=== PATIENT | female | born 2000 | race Caucasian/White ===

== ENCOUNTER 2018-08-05 10:25 | Inpatient (IN) ==
[2018-08-05 11:30] LABS: Amphetamine Screen,Urine Negative ng/mL (Cutoff=1000); Barbiturate Screen,Urine Negative ng/mL (Cutoff=200); Benzodiazepines Screen,Urine Negative ng/mL (Cutoff=200); Cannabinoid Screen,Urine Positive ng/mL (Cutoff = 50); Cocaine Screen,Urine Negative ng/mL (Cutoff= 300); Opiate Screen,Urine Negative ng/mL (Cutoff=300); Phencyclidine Screen,Urine Negative ng/mL (Cutoff=25)
[2018-08-05] MEDS ORDERED: Metoclopramide 10 MG/2 ML VIAL IVP PRN (11:59)
[2018-08-05] MEDS ORDERED: Famotidine 20 MG/2 ML VIAL IVP PRN (11:59)
[2018-08-05] MEDS ORDERED: Ondansetron 4 MG/2 ML VIAL IVP PRN (11:59)
[2018-08-05] MEDS ORDERED: Naloxone 0.4 MG/ML INJ IVP PRN (11:59)
[2018-08-05] MEDS ORDERED: *HR* Nalbuphine 10 MG/ML AMPUL IVP PRN (11:59)
[2018-08-05] MEDS ORDERED: Ringers Solution, Lactated 1,000 ML IVC SCH (12:00)
[2018-08-05 12:18] LABS: Basophils % 0.2 %; Eosinophils # 0.1 K/mcL (0.0-0.6); Eosinophils % 0.6 %; Hemoglobin 12.9 g/dL (11.5-15.4); Immature Granulocytes % 0.5 % (0-4); Lymphocytes # 1.6 K/mcL (0.6-4.6); Mean Corpuscular HGB Conc 34.9 g/dL (31.6-35.5); Mean Corpuscular Hemoglobin 31.5 pg (28.0-33.3); Mean Corpuscular Volume 90.2 fL (83.0-100.0); Mean Platelet Volume 11.3 fL (9.4-12.4); Monocytes # 0.5 K/mcL (0.0-1.3); Neutrophils # 12.7 K/mcL (1.6-8.9); Platelet Count 191 K/mcL (140-400); Segmented Neutrophils % 84.7 %
[2018-08-05] MEDS ORDERED: Penicillin G Potassium 5,000,000 UNIT in 0.9 % Sodium Chloride Mini Bag 100 ML IVPB ONE (12:20)
--- NOTE | 2018-08-05 12:56 | OB/GYN History & Physical ---
Date of Encounter: 08/05/18 Time of Encounter: 12:40 Assessment and Plan (1) 40 weeks gestation of Current visit: Yes Status: Acute Admit for labor. Nubain for pain now after lengthy discussion with pt about risk of withdrawl with regular opiate use. Pt adamantly denies regular use. GBS unknown. POC discussed with Dr. John. Pt is negative by risk factors. Will hold antibiotics for now. Anticipate . (2) Non-compliance Current visit: Yes Status: Acute (3) Marijuana abuse Current visit: Yes Status: Acute (4) Opiate abuse, episodic Current visit: Yes Status: Acute (5) Tobacco abuse Current visit: Yes Status: Acute History of Present Illness Chief complaint: contractions HPI: Ms. Foote is a 18 year old female presenting at 40w4d, by 19 week ultrasound, with c/o contractions that started at 0200 this am. She reports she was initially unable to sleep through contractions but then they got closer and stronger around 0500. She denies LOF or vaginal bleeding. Good FM. She received scant care at [facility] with Dr. Del Rio. She has not been seen since 23 weeks because her [id number]-rt-iae has been critically ill and hospitalized in [place] so she has been staying up there. Pt does admit to tobacco use of 1/2 PPD. Marijuana occassional use. She also admits to using percocet that she gets from her mother with last use 3-5days ago and prior to that was 2-3 months ago. O positive Rubella immune HIV, Hep B and Hep C negative No treponema result found in records GC/CL negative Glucola WNL UDS positive for Oxycodone and marijuana at initial visit Past Med Surg Social Fam HX - Past Medical History Medical history: no medical history Psychiatric history: no psych history - Past Surgical History Surgical History: no surgical history - Social History Smoking Status: Current some day smoker Packs per day: 0.5 Alcohol use: none Drug use: marijuana, prescription drug abuse - Family History Father Living Status: Hx Family Cardiac Disorders: Yes (CAD, from a heart attack) Obstetrical History - Pregnancies : 1 Medications and Allergies Phenergan 1 tab PO PRN PRN 08/05/18 [History] Vitamin Tablet 1 tab PO DAILY 08/05/18 [History] Allergy/AdvReac Type Severity Reaction Status Date / Time No Known Allergies Allergy Verified 08/05/18 11:14 Review of System OB All systems PM: reviewed and no additional remarkable complaints except as stated Exam - Constitutional Constitutional: well developed, well nourished, no acute distress - HEENT HEENT: Mucus Membranes Moist - Lungs Respiratory exam: CTAB - Cardiovascular Cardiovascular exam: RRR, +S1, +S2 - Abdomen Abdomen: Present: gravid, non tender - Extremities Extremities exam: normal inspection - Vulva Vulva: bilateral: normal - Vagina Vagina: Present: normal moisture - Cervix Dilation: 2 (2.5) Effacement: 90 Station: -2 - Anus/Rectum Anus/Rectum: Present: normal perianal skin Results Result Diagrams: 08/05/18 11:50 Abnormal lab results WBC 15.0 K/mcL (4.3-11.1) H 08/05/18 11:50 12.7 K/mcL (1.6-8.9) H 08/05/18 11:50 U Marijuana (THC) Screen Positive ng/mL (Cutoff = 50) H 08/05/18 10:40 All other labs normal. - VTE Reasons for not Prescribing Prophylaxis: Treatment not Indicated - Low risk for VTE
[2018-08-05] MEDS ORDERED: Bupivacaine-MPF 0.25% 10 ML VIAL EP ONE (13:33)
[2018-08-05] MEDS ORDERED: *HR* FentaNYL (PF) 100 MCG/2 ML VIAL EP ONE (13:33)
[2018-08-05] MEDS ORDERED: Epidural Premix (fent/bupiv) 110 ML EP SCH (13:45)
--- NOTE | 2018-08-05 14:06 | OB Labor Progress Note ---
Date of Encounter: 08/05/18 Time of Encounter: 14:04 Labor Progress Note - Subjective Subjective: Pt reports pain 7/10 with contractions. She is requesting an epidural. - Cervix Cervix: 4/90/0 - Heart Tones Heart Tones: Category I - Ellerbe Ellerbe: 6-8 minutes - Interventions Interventions: AROM for scant amount blood tinged fluid. - Plan Plan: Continue to monitor. Epidural as requested. Anticipate .
--- NOTE | 2018-08-05 14:49 | Anesthesia Evaluation PreOp ---
Date of Encounter: 08/05/18 Time of Encounter: 14:14 - Past History Planned Operation: MARCI Cardiac History: Denies any Significant Hx Pulmonary History: Smoker (1/2ppd), Pack/yr (2) VIDEO GAME ANIMATOR History: Denies Any Significant HX Other Medical History: Denies Any Significant HX Anesthesia History: No Prior Anesthetic Complications (never had NA or GA; denies family h/o GA complications) : Yes Alcohol Use: none Drug use: marijuana, prescription drug abuse Medications and Allergies Phenergan 1 tab PO PRN PRN 08/05/18 [History] Vitamin Tablet 1 tab PO DAILY 08/05/18 [History] Allergy/AdvReac Type Severity Reaction Status Date / Time No Known Allergies Allergy Verified 08/05/18 11:14 - Meds/Allergy Pre-op Review Medications Reviewed: Yes Allergies Reviewed: Yes Beta Blockers on Current Med List: No Anesthesia Results - Labs 08/05/18 11:50 Anesthesia Exam O2 Sat Height 1.68 m Height 1.68 m Weight 78.9 kg Weight 78.9 kg NPO (# of Hours): solids > 8hrs Pain Scale: 8 Pain Scale Used: Numeric (1 - 10) - HEENT Pupil (Motor): Pupils equal Mallampati: II Teeth: Normal Oral Opening: Greater than 3 - VIDEO GAME ANIMATOR LOC: Oriented VIDEO GAME ANIMATOR Motor: Normal RUE, Normal LUE, Normal RLE, Normal LLE, Normal Face VIDEO GAME ANIMATOR Sensory: Normal: RUE, LUE, RLE, LLE, Face - Cardiac Rhythm: Regular Murmur: None - Pulmonary Breath Sounds: bilateral Clear Respiratory Effort: Symmetrical Anesthesia Assess/Plan ASA Score: 2 Level of consciousness: Cooperative, Oriented, Anxious, Restless Anesthetic Plan: Epidural Autologous Blood: No Monitoring Plan: Standard Monitors Recovery Plan: Other
--- NOTE | 2018-08-05 14:52 | Anesthesia Procedures ---
Date of Encounter: 08/05/18 Time of Encounter: 14:49 Procedures: Anesthesia - Epidural/Spinal Patient ID/Chart reviewed: Yes Patient examined: Yes OB Eval: Gestational age: 40 weeks 4 days OB Eval: : 1 OB Eval: Hx Para: 0 OB Eval: Dilated at (cm): 4 OB Eval: Contractions: Non-stressed pattern Consent Obtained: Yes Supplemental Oxygen: None/Room Air Site Prep: Aseptic Technique, Sterile prep and drape, 0.5% Chlorhexidine/Alcohol Patient position: upright Local Anesthetic: Lidocaine 1% Amount of Local Anesthetic used: 3 Touhy Needle Gauge: 18 Touhy Needle Depth (cm): 5 Catheter Depth at Skin (cm): 10 Test Dose (1.5% Lido + Epi): Volume given (mls): 5 Test Dose Result: Negative Loading Dose: 0.25% Marcaine (mls): 5 Loading Dose: Fentanyl (mcg): 100 Loading Dose Administered: Thru Catheter Infusion Rate (mls/hr): 14 (w/ demand bolus of 5mL q30min PRN) Catheter Secured in Place: Tegaderm, Tape Interspace Used: L3-L4 Loss of Resistance (CHIQUITA): Yes Blood: No CSF: Yes (intentional meningeal puncture performed w/ 25G sprotte through Tuohy) Paresthesia: No Spinal Needle Gauge: 25 Procedure: successful on 1st attempt; Patient tolerated procedure well; VSS Vitals + FHT's: see Nyla HERNANDEZ's electronic records for VS entry
[2018-08-05] MEDS ORDERED: Penicillin G Potassium 2,500,000 UNIT in 0.9 % Sodium Chloride 100 ML IVPB SCH (16:30)
--- NOTE | 2018-08-05 17:20 | OB Labor Progress Note ---
Date of Encounter: 08/05/18 Time of Encounter: 17:17 Labor Progress Note - Subjective Subjective: Pt comfortable with epidural. - Cervix Cervix: 6/100/0 - Heart Tones Heart Tones: Baseline 120 BPM, difficulty tracing. Possible decel while pt on back for IUPC placement. Pt repositioned to left lateral after IUPC placed. - [place]: 3-4 minutes - Interventions Interventions: IUPC placed - Plan Plan: Continue to monitor. Begin pitocin as needed. Anticipate .
[2018-08-05] MEDS ORDERED: Oxytocin 20 units/ LR 1000 mL 20 UNIT/1,000 ML BAG IVC SCH (17:30)
--- NOTE | 2018-08-05 20:19 | Anesthesia Progress Note ---
Date of Encounter: 08/05/18 Time of Encounter: 20:17 Anesthesia Note - Note Note: Called to patient bedside to evaluate breakthrough labor pain. Patient describes bilateral lower pelvic pain. Pt reports LE paresthesias R > L. Patient already positioned left side down. Catheter remains at 10.5cm nancy at skin. a total of 10mL of 0.125% bupivicaine administered over a period of 20 min. Patient reports improvement in pain score. VSS 08/05/18 20:17
--- NOTE | 2018-08-05 22:20 | OB/GYN Procedure Note ---
Delivery - Delivery Date: 08/05/18 Provider: Aura John Delivery monitor: internal FHT, internal uterine Anesthesia: epidural - (s) A Delivery Date: 08/05/18 Delivery Time: 22:11 Presentation: vertex Position: MASOUD Route of delivery: vacuum extraction Gender: Female Viability: Viable at 1 minute: 8 at 5 mins: 9 Shoulder Dystocia: not encountered Specimens collected: cord blood Placenta: spontaneous - Repair Episiotomy: none - Complications Delivery complications: other (decreased heart tones with pushing) Delivery comments: Called to labor and delivery room secondary to decreased heart tones by our pipelines supervisor. Heart tones were noted to be in the 80s. Baby was in the right occiput anterior presentation. Vacuum was placed on the occiput without difficulty. Maternal effort was good. One pull was performed with delivery of the occiput. No complications noted. Upon delivery baby was vigorous and crying. She was placed upon the maternal abdomen. Apgars were 8 and 9. Mother and baby both tolerated procedure well. At this time our pipelines supervisor resumed care of the patient. - Disposition Mom disposition: stable in LDR [place] disposition: stable in LDR
--- NOTE | 2018-08-05 22:59 | OB/GYN Procedure Note ---
Delivery - Delivery Date: 08/05/18 Provider: Aura John (Mina) Intrapartum events: meconium (meconium noted just prior to delivery, scant blood tinged fluid at AROM, no other fluid noted throughout the labor process), oligohydramnios Delivery augmentation: rupture of membranes Delivery monitor: internal FHT, internal uterine Anesthesia: epidural Quantitated Blood Loss: 150 - (s) Infant A Infant Delivery Date: 08/05/18 Delivery Time: 22:11 Presentation: vertex Position: MASOUD Route of delivery: vacuum extraction Gender: Female Viability: Viable Pounds: 6 Ounces: 8 at 1 minute: 8 at 5 mins: 9 Shoulder Dystocia: not encountered Specimens collected: cord blood Placenta: spontaneous Cord: 3 umbilical vessels, other (meconium stained membranes) - Repair Episiotomy: none Laceration Description: Perineal - 2nd Degree - Complications Delivery complications: meconium, other (decreased heart tones with pushing) - Disposition Mom disposition: stable in LDR [place] disposition: stable in LDR - Comments Comments: Pt presented at 40 weeks gestation in active labor. Labor augmented with AROM. Epidural anesthesia. Pt progressed well to complete and +2 station. I was then called to room for delivery. Upon my arrival FHT noted to to be in the 90's. Pt was moved from supine position to left lateral. Pt continued to push with minimal descent. Continued bradycardia. Good scalp stim. Pt repositioned to right lateral and pushed without significant movement. Dr. John called at this time for vacuum assist. Dr. John is on her way back from ER. With permission from Dr. John kiwi placed with gentle traction to assist with pushing for one contraction for [address] John then arrived and assumed care for VAVD. I resumed care following . After pulsations ceased the cord was clamped and cut and the placenta delivered spontaneous and intact. A second degree perineal laceration was repaired with 2-0 monocryl. Continued trickle of blood noted following repair. Dr. John called back to room to evaluate for cervical laceration. No cervical laceration noted per Dr. John. Per physician recommendation will treat for lower uterine segment atony. EBL 150ml. Mother and baby stable in DR following .
[2018-08-05] MEDS ORDERED: Rho Immune Globulin 1,500 UNIT SYRINGE IM PRN (23:35)
[2018-08-05] MEDS ORDERED: Measles/Mumps/Rubella Vacc 0.5 ML VIAL SQ PRN (23:35)
[2018-08-05] MEDS ORDERED: Acetaminophen 325 MG TABLET PO PRN (23:35)
[2018-08-05] MEDS: Ibuprofen 600 MG TABLET PO PRN (23:44)
[2018-08-06 00:45] LABS: Basophils % 0.2 %; Eosinophils % 0.1 %; Hematocrit 34.4 % (35.3-44.9); Hemoglobin 12.1 g/dL (11.5-15.4); Immature Granulocytes % 0.7 % (0-4); Lymphocytes # 1.3 K/mcL (0.6-4.6); Lymphocytes % 6.1 %; Mean Corpuscular HGB Conc 35.2 g/dL (31.6-35.5); Mean Corpuscular Hemoglobin 31.8 pg (28.0-33.3); Mean Corpuscular Volume 90.5 fL (83.0-100.0); Mean Platelet Volume 11.3 fL (9.4-12.4); Monocytes # 1.2 K/mcL (0.0-1.3); Monocytes % 5.4 %; Neutrophils # 19.1 K/mcL (1.6-8.9); Platelet Count 167 K/mcL (140-400); Red Cell Distribution Width 12.7 % (11.5-14.5); Segmented Neutrophils % 87.5 %
[2018-08-06 01:07] LABS: Alanine Aminotransferase 7 Units/L (7-52); Aspartate Amino Transferase 14 Units/L (13-39); BUN/Creatinine Ratio 15 (6-26); Blood Urea Nitrogen 7 mg/dL (6-20); Lactate Dehydrogenase 173 Units/L (140-271); eGFR For Non-African Americans > 60 (> 60)
[2018-08-06] MEDS: Ibuprofen 600 MG TABLET PO PRN ×3 (07:24→20:53)
[2018-08-06] MEDS: Prenatal Vit/FA 1 EACH TABLET PO SCH (07:24)
[2018-08-06 07:40] LABS: Basophils # 0.1 K/mcL (0.0-0.2); Basophils % 0.2 %; Eosinophils % 0.1 %; Hematocrit 33.6 % (35.3-44.9); Hemoglobin 11.4 g/dL (11.5-15.4); Immature Granulocytes % 0.5 % (0-4); Lymphocytes # 2.1 K/mcL (0.6-4.6); Lymphocytes % 9.6 %; Mean Corpuscular HGB Conc 33.9 g/dL (31.6-35.5); Mean Corpuscular Hemoglobin 31.5 pg (28.0-33.3); Mean Corpuscular Volume 92.8 fL (83.0-100.0); Monocytes # 1.2 K/mcL (0.0-1.3); Monocytes % 5.6 %; Neutrophils # 18.4 K/mcL (1.6-8.9); Platelet Count 173 K/mcL (140-400); Red Blood Count 3.62 M/mcL (3.82-4.97); Red Cell Distribution Width 12.8 % (11.5-14.5)
[2018-08-06] MEDS ORDERED: Benzocaine/Menthol 56 GM AEROSOL SPRAY TP PRN (07:49)
[2018-08-06] MEDS: Oxytocin 20 units/ LR 1000 mL 20 UNIT/1,000 ML BAG IVC SCH (08:28)
[2018-08-06] MEDS ORDERED: NON-FORMULARY MEDICATION 1 EACH EACH (Prenatal Vitamin Tablet 1 TAB) PO SCH (09:00)
--- NOTE | 2018-08-06 09:51 | OB/GYN Progress Note ---
Date of Encounter: 08/06/18 Time of Encounter: 09:46 - Assessment and Plan (1) Status post vaginal delivery Current Visit: Yes Status: Acute Meeting day 1 milestones. Bleeding normal, no large clots noted. Pain well controlled with prescribed medications. Tolerating diet. Voiding without difficulty. Passing gas, no BM yet. Ambulating without difficulty. Denies CHERRY since delivery, visual changes, CP, SOB. (2) Tobacco abuse Current Visit: Yes Status: Acute (3) Opiate abuse, episodic Current Visit: Yes Status: Acute (4) Marijuana abuse Current Visit: Yes Status: Acute Subjective - Subjective Principal diagnosis: s/p vaginal delivery Patient reports: appetite normal, voiding normally, pain well controlled, ambulating normally [place]: in NICU (nursery), bottle feeding Objective - Latest Vital Signs Latest vital signs: Vital Signs Temp Pulse Resp BP Pulse Ox 08/06/18 09:06 98.5 F 60 14 139/84 95 08/06/18 02:15 99.6 F 54 14 155/89 99 08/06/18 01:15 99.8 F H 55 14 153/85 98 Intake and Output 08/05/18 08/06/18 08/06/18 23:59 07:59 15:59 Output Total 70 / 770 700 / 770 Balance -70 / -770 -700 / -770 Output: Urine 70 / 770 700 / 770 Other: # Voids 1 Weight 79.3 kg Patient Weight 08/06/18 23:59 Weight 79.3 kg - Exam Lungs: left: crackles/rales, right: normal Chest: Normal S1, Normal S2 Extremities: Present: normal. Absent: tenderness Abdomen: Present: soft. Absent: tenderness Uterus: Present: firm - Labs Labs: Laboratory Results - last 24 hr 08/05/18 08/05/18 08/05/18 10:40 11:50 11:50 WBC 15.0 H RBC 4.10 Hgb 12.9 Hct 37.0 MCV 90.2 MCH 31.5 MCHC 34.9 RDW 13.0 Plt Count 191 MPV 11.3 Immature Gran % 0.5 Seg Neutrophils % 84.7 Lymphocytes % 11.0 Monocytes % 3.0 Eosinophils % 0.6 Basophils % 0.2 Neutrophils # 12.7 H Lymphocytes # 1.6 Monocytes # 0.5 Eosinophils # 0.1 Basophils # 0.0 BUN Creatinine Est GFR ( Amer) Est GFR (Non-Af Amer) BUN/Creatinine Ratio Uric Acid AST ALT Lactate Dehydrogenase Urine Opiates Screen Negative Ur Barbiturates Screen Negative Ur Phencyclidine Scrn Negative Ur Amphetamines Screen Negative U Benzodiazepines Scrn Negative Urine Cocaine Screen Negative U Marijuana (THC) Screen Positive H Ur Drug Screen Interp See Below T.isaacdum Ab Interpret Negative Specimen Rejected 08/06/18 08/06/18 08/06/18 00:30 00:30 05:33 WBC 21.9 H RBC 3.80 L Hgb 12.1 Hct 34.4 L MCV 90.5 MCH 31.8 MCHC 35.2 RDW 12.7 Plt Count 167 MPV 11.3 Immature Gran % 0.7 Seg Neutrophils % 87.5 Lymphocytes % 6.1 Monocytes % 5.4 Eosinophils % 0.1 Basophils % 0.2 Neutrophils # 19.1 H Lymphocytes # 1.3 Monocytes # 1.2 Eosinophils # 0.0 Basophils # 0.0 BUN 7 Creatinine 0.46 L Est GFR ( Amer) > 60 Est GFR (Non-Af Amer) > 60 BUN/Creatinine Ratio 15 Uric Acid 5.0 AST 14 ALT 7 Lactate Dehydrogenase 173 Urine Opiates Screen Ur Barbiturates Screen Ur Phencyclidine Scrn Ur Amphetamines Screen U Benzodiazepines Scrn Urine Cocaine Screen U Marijuana (THC) Screen Ur Drug Screen Interp T.isaacdum Ab Interpret Specimen Rejected Clotted 08/06/18 06:30 WBC 22.0 H RBC 3.62 L Hgb 11.4 L Hct 33.6 L MCV 92.8 MCH 31.5 MCHC 33.9 RDW 12.8 Plt Count 173 MPV 12.0 Immature Gran % 0.5 Seg Neutrophils % 84.0 Lymphocytes % 9.6 Monocytes % 5.6 Eosinophils % 0.1 Basophils % 0.2 Neutrophils # 18.4 H Lymphocytes # 2.1 Monocytes # 1.2 Eosinophils # 0.0 Basophils # 0.1 BUN Creatinine Est GFR ( Amer) Est GFR (Non-Af Amer) BUN/Creatinine Ratio Uric Acid AST ALT Lactate Dehydrogenase Urine Opiates Screen Ur Barbiturates Screen Ur Phencyclidine Scrn Ur Amphetamines Screen U Benzodiazepines Scrn Urine Cocaine Screen U Marijuana (THC) Screen Ur Drug Screen Interp T.pallidum Ab Interpret Specimen Rejected
[2018-08-07] MEDS: Ibuprofen 600 MG TABLET PO PRN (06:22)
[2018-08-07] MEDS: Prenatal Vit/FA 1 EACH TABLET PO SCH (07:52)
[2018-08-07 07:57] VITALS: BP 148/63
--- NOTE | 2018-08-07 08:38 | Discharge Summary ---
Date of Encounter: 08/07/18 Time of Encounter: 08:30 - Discharge Diagnosis (1) Status post vaginal delivery Priority: Primary Status: Acute Comments: S/P vaginal delivery day 2. Pain is well controlled Lochia light Voiding without difficulty Tolerating regular diet and passing flatus bottle feeding Discharge to guest today (2) Marijuana abuse Priority: Secondary Status: Acute (3) Opiate abuse, episodic Priority: Secondary Status: Acute (4) Tobacco abuse Priority: Secondary Status: Acute - Discharge Medications Prescriptions: New Docusate [Colace] 100 mg PO BID #20 capsule Benzocaine/Menthol [place] [Dermoplast [place]] 1 appl TP QID PRN aerosol PRN Reason: See Comments Ferrous Sulfate 325 mg PO DAILY #90 tablet Ibuprofen [Motrin] 600 mg PO Q6HR PRN #30 tablet PRN Reason: Cramping Acetaminophen [Tylenol] 650 mg PO Q6H PRN tablet PRN Reason: Mild Pain Continued Vitamin Tablet 1 tab PO DAILY Discontinued Phenergan 1 tab PO PRN PRN PRN Reason: Nausea Home Medications: Vitamin Tablet 1 tab PO DAILY 08/05/18 [History] Acetaminophen [Tylenol] 650 mg PO Q6H PRN tablet 08/07/18 [Rx] Benzocaine/Menthol [place] [Dermoplast [place]] 1 appl TP QID PRN aerosol 08/07/18 [Rx] Docusate [Colace] 100 mg PO BID #20 capsule 08/07/18 [Rx] Ferrous Sulfate 325 mg PO DAILY #90 tablet 08/07/18 [Rx] Ibuprofen [Motrin] 600 mg PO Q6HR PRN #30 tablet 08/07/18 [Rx] Allergies/Adverse Reactions: Allergy/AdvReac Type Severity Reaction Status Date / Time No Known Allergies Allergy Verified 08/05/18 11:14 Data Procedures and tests throughout hospitalization: Laboratory Tests 08/05/18 08/05/18 08/05/18 10:40 11:50 11:50 WBC 15.0 H RBC 4.10 Hgb 12.9 Hct 37.0 MCV 90.2 MCH 31.5 MCHC 34.9 RDW 13.0 Plt Count 191 MPV 11.3 Immature Gran % 0.5 Seg Neutrophils % 84.7 Lymphocytes % 11.0 Monocytes % 3.0 Eosinophils % 0.6 Basophils % 0.2 Neutrophils # 12.7 H Lymphocytes # 1.6 Monocytes # 0.5 Eosinophils # 0.1 Basophils # 0.0 BUN Creatinine Est GFR ( Amer) Est GFR (Non-Af Amer) BUN/Creatinine Ratio Uric Acid AST ALT Lactate Dehydrogenase Urine Opiates Screen Negative Ur Barbiturates Screen Negative Ur Phencyclidine Scrn Negative Ur Amphetamines Screen Negative U Benzodiazepines Scrn Negative Urine Cocaine Screen Negative U Marijuana (THC) Screen Positive H Ur Drug Screen Interp See Below T.pallidum Ab Interpret Negative Specimen Rejected 08/06/18 08/06/18 08/06/18 00:30 00:30 05:33 WBC 21.9 H RBC 3.80 L Hgb 12.1 Hct 34.4 L MCV 90.5 MCH 31.8 MCHC 35.2 RDW 12.7 Plt Count 167 MPV 11.3 Immature Gran % 0.7 Seg Neutrophils % 87.5 Lymphocytes % 6.1 Monocytes % 5.4 Eosinophils % 0.1 Basophils % 0.2 Neutrophils # 19.1 H Lymphocytes # 1.3 Monocytes # 1.2 Eosinophils # 0.0 Basophils # 0.0 BUN 7 Creatinine 0.46 L Est GFR ( Amer) > 60 Est GFR (Non-Af Amer) > 60 BUN/Creatinine Ratio 15 Uric Acid 5.0 AST 14 ALT 7 Lactate Dehydrogenase 173 Urine Opiates Screen Ur Barbiturates Screen Ur Phencyclidine Scrn Ur Amphetamines Screen U Benzodiazepines Scrn Urine Cocaine Screen U Marijuana (THC) Screen Ur Drug Screen Interp T.pallidum Ab Interpret Specimen Rejected Clotted 08/06/18 06:30 WBC 22.0 H RBC 3.62 L Hgb 11.4 L Hct 33.6 L MCV 92.8 MCH 31.5 MCHC 33.9 RDW 12.8 Plt Count 173 MPV 12.0 Immature Gran % 0.5 Seg Neutrophils % 84.0 Lymphocytes % 9.6 Monocytes % 5.6 Eosinophils % 0.1 Basophils % 0.2 Neutrophils # 18.4 H Lymphocytes # 2.1 Monocytes # 1.2 Eosinophils # 0.0 Basophils # 0.1 BUN Creatinine Est GFR ( Amer) Est GFR (Non-Af Amer) BUN/Creatinine Ratio Uric Acid AST ALT Lactate Dehydrogenase Urine Opiates Screen Ur Barbiturates Screen Ur Phencyclidine Scrn Ur Amphetamines Screen U Benzodiazepines Scrn Urine Cocaine Screen U Marijuana (THC) Screen Ur Drug Screen Interp T.pallidum Ab Interpret Specimen Rejected Date of admission: 08/05/18 10:25 Primary care physician: Chad Colin MD Consults: 08/05/18 23:35 Consult to Head Tennis Professional [CONS] Routine Comment: Vaginal delivery, consult needed Consult to Spa Associate [CONS] Routine Reason for SW Consult: limited care, drug abuse Discharging clinician: Celeste Quigley Anticipated date of discharge: 08/07/18 - Patient Status Disposition: Home, Self-Care Condition: Good Functional capacity at discharge: independent ambulation Overall status at discharge: patient is progressing back to baseline - Discharge Instructions Follow Up With: Chad Colin MD [Primary Care Provider] - Rozina Posadas CNM [Non-Partnered Physician] - - Diet and Activity Activity: increase activity as tolerated Diet: regular diet Hospital Course Reason for admission: IUP at term Delivery: vacuum extraction Episiotomy: none Laceration: 2nd degree Other procedures: none complications: none Discharge diagnosis: IUP at term delivered baby: female Time spent discussing smoking cessation with patient: 3 to 10 minutes Time Attestation: Total time spent providing and/or coordinating discharge services: Time Spent: Less than 30 minutes Exam - Constitutional Vitals: Temp Pulse Resp BP Pulse Ox 98.1 F 57 16 148/63 94 08/07/18 07:56 08/07/18 07:56 08/07/18 07:56 08/07/18 07:56 08/07/18 07:56 General appearance IM: cooperative, A&O X 3, pleasant - Respiratory Respiratory exam: Present: CTAB - Cardiovascular Cardiovascular exam IM: Present: RRR, +S1, +S2 - GI/Abdominal GI/Abdominal exam IM: normal bowel sounds - Rectal Rectal exam: deferred - Uterine Tone: Firm Uterus Position: At Umbilicus, Midline - Extremities Exam Extremities exam IM: Present: normal capillary refill, normal inspection, radial pulses palpable and symmetrical - Neurological Exam Neurological exam: alert, oriented X3
== END 2018-08-07 10:45 | disposition home or self-care (01) | DRG 560 ==
LOC: 1NENULAB → OBSVTOIN 10:25 → 1NENUOBS 08-06 01:02
PROVIDERS: ADMIT Obstetrics & Gynecology; ATTEND Obstetrics & Gynecology